=== PATIENT | female | born 1960 | race Caucasian/White ===

== ENCOUNTER 2016-10-05 14:01 | Emergency (ER) | payer MEDICARE ==
[~2016-10-05] VITALS: Ht 167.6 cm; Wt 67.1 kg
[2016-10-05 14:30] VITALS: BP 119/81
[2016-10-05] MEDS ORDERED: HYDROcodone/APAP 5/325MG 1 TAB TABLET PO ONE (14:45)
--- NOTE | 2016-10-05 14:50 | RAD ---
Indication nontraumatic wrist pain. AP oblique and lateral views of the left wrist were obtained. No fracture or acute finding is seen. Significant degenerative changes are not apparent on plain films
[2016-10-05] MEDS ORDERED: ACET325T9 PO (15:02)
[2016-10-05] MEDS ORDERED: NAPR500T PO (15:02)
--- NOTE | 2016-10-05 15:02 | PHYS DOC ---
Past Medical History Past Medical History: Cancer, COPD Additional Past Medical Histor: VULVAR CA Past Surgical History: Other Additional Past Surgical Histo: RADIATION (X3) Smoking: Cigarettes, Less than 1pk/day Alcohol Use: None Drug Use: None Adult General Chief Complaint Chief Complaint: WRIST PAIN [facility] HPI Patient is a 55 year old female who presents with a year-long history of wrist pain acutely exacerbated over the last several days with particular tenderness over the distal ulna. Patient denies any specific trauma or overuse syndrome. She presents with increasing pain over the wrist with movements specifically flexion extension at the wrist lateral rotation. Patient describes the pain as achy and throbbing a 10 of 10 with no change in color to the hand the loss of sensation. She denies over use or sports related injury. She is right-hand dominant. Patient has been used [id number] Motrin and Tylenol with some improvement or symptoms. Given her increased pain she is looking for alternative therapy. Review of Systems Review of Systems Constitutional: Denies fever or chills [] Eyes: Denies change in visual acuity, redness, or eye pain [] HENT: Denies nasal congestion or sore throat [] Respiratory: Denies cough or shortness of breath [] Cardiovascular: No additional information not addressed in HPI [] GI: Denies abdominal pain, nausea, vomiting, bloody stools or diarrhea [] : Denies dysuria or hematuria [] Musculoskeletal: Her only complaint is left wrist pain Integument: Denies rash or skin lesions [] Neurologic: Denies headache, focal weakness or sensory changes [] Endocrine: Denies polyuria or polydipsia [] Current Medications Current Medications Current Medications Medications (Trade) Dose Ordered Sig/[facility] Start Time Stop Time Status Last Admin Dose Admin Acetaminophen/ Hydrocodone Bitart (Lortab 5/325) 2 tab 1X ONCE 10/05/16 14:45 10/05/16 14:46 DC 10/05/16 14:48 2 TAB Allergies Allergies Allergies Coded Allergies Type Severity Reaction Last Updated Verified No Known Drug Allergies 10/05/16 No Physical Exam Physical Exam Constitutional: Well developed, well nourished, no acute distress, non-toxic appearance. [] Cardiovascular:Heart rate regular rhythm, no murmur [] Lungs & Thorax: Bilateral breath sounds clear to auscultation [] Skin: Warm, dry, no erythema, no rash. [] Extremities: no cyanosis, no clubbing, decreased range of motion secondary to pain specifically over lateral flexion at the wrist. Patient has marked tenderness to palpation with minimal soft tissue swelling over the distal ulna only. There is no erythema, no vesicles no changes in skin color. Patient is +2 brisk capillary refill +2 peripheral pulses sensation is intact to light touch and proprioception over each of the digits of the fingers. Patient has +2 peripheral pulses at the anal and ulnar artery. There is no tenderness to percussion over the carpal tunnel or over the ulnar nerve at the medial elbow. no Edema. Neurologic: Alert and oriented X 3, normal motor function, normal sensory function, no focal deficits noted. [] Psychologic: Affect normal, judgement normal, mood normal. [] Current Patient Data Vital Signs Vital Signs Date Time Temp Pulse Resp B/P (MAP) Pulse Ox O2 Delivery O2 Flow Rate FiO2 10/05/16 14:48 16 Room Air 10/05/16 14:30 97.8 92 98 97.8 EKG EKG [] Radiology/Procedures Radiology/Procedures [] [address] [place] [address] IMAGING REPORT Signed PATIENT: AVIVA HUERTAS ACCOUNT: [id number] : 1960 LOCATION: ER AGE: 55 SEX: F EXAM STATUS: REG ER ORD. PHYSICIAN: AARTI GILLIAM MD REASON: wrist pain PROCEDURE: WRIST 3V LEFT Indication nontraumatic wrist pain. AP oblique and lateral views of the left wrist were obtained. No fracture or acute finding is seen. Significant degenerative changes are not apparent on plain films DICTATED and SIGNED BY: GIRMA DEL ROSARIO MD DATE: 10/05/16 1440 CC: AARTI GILLIAM MD; NO PCP ~ Course & Med Decision Making Course & Med Decision Making Pertinent Labs and Imaging studies reviewed. (See chart for details) Vital signs are normal with heart rate of 81, temperature 97.8 blood pressure 119/81 saturation 90% on room air respiratory rate 16 patient's vital signs been reviewed nursing notes been reviewed physical and history of been reviewed. Patient demonstrates with a chronic tendinitis of the distal ulna likely from overuse possibly repetitive trauma. Patient is oh evidence of septic joint, gout gout or migratory throat is secondary to STDs. We will provide NSAIDs and some of her breakthrough pain a cockup wrist splint and follow-up with orthopedics and if this is physical therapy. Impression: Wrist pain likely arthritis possible tendinitis without obvious occult fracture. Disposition: PCP follow-up with orthopedics and physical therapy referrals. [] Dragon Disclaimer Dragon Disclaimer This electronic medical record was generated, in whole or in part, using a voice recognition dictation system. Departure Departure Impression: Primary Impression: Tendinitis Additional Impression: Arthritis, wrist Disposition: HOME, SELF-CARE Condition: IMPROVED Referrals: NO PCP (PCP) Patient Instructions: Extensor Carpi Ulnaris Tendinitis with [facility] Additional Instructions: This follow-up with your primary care physician for referral to exert and physical therapy. Please use the NSAIDs as appropriate to help treat symptoms and rest this wrist was splinted. Please return for any new or increasing symptoms or given any question concerns. Scripts Acetaminophen (TYLENOL) 325 Mg Tablet 1-2 TAB PO QID, #60 TAB 2 Refills Prov: AARTI GILLIAM MD 10/05/16 Naproxen (NAPROSYN) 500 Mg Tablet 1 TAB PO BID, #14 TAB 1 Refill Prov: AARTI GILLIAM MD 10/05/16 Problem Qualifiers AARTI GILLIAM MD Oct 05, 2016 15:02
== END 2016-10-05 15:10 | disposition home or self-care (01) ==
LOC: ER 14:01
DX: M19.032 Primary osteoarthritis, left wrist (principal); M77.9 Enthesopathy, unspecified; J44.9 Chronic obstructive pulmonary disease, unspecified; F17.210 Nicotine dependence, cigarettes, uncomplicated
CPT/HCPCS: 29125; 73110; 99284-25

== ENCOUNTER 2018-03-11 13:26 | Emergency (ER) | payer MEDICARE, OTHER ==
[~2018-03-11] VITALS: Ht 167.6 cm; Wt 67.1 kg
[~2018-03-11 13:26] MED LIST: ACET325T9 PO; NAPR-683 PO
[2018-03-11 13:42] VITALS: BP 132/64
[2018-03-11] MEDS ORDERED: HYDR-3164 PO (14:28)
[2018-03-11] MEDS ORDERED: PENI500T PO (14:28)
--- NOTE | 2018-03-11 14:28 | PHYS DOC ---
Past Medical History Past Medical History: Cancer, COPD Additional Past Medical Histor: VULVAR CA Past Surgical History: Other Additional Past Surgical Histo: RADIATION (X3) Alcohol Use: None Drug Use: None Adult General Chief Complaint Chief Complaint: DENTAL PROBLEM HPI HPI Patient is a 57 year old female who presents with right-sided facial droop swelling and lower right dental pain with a broken tooth. She rates her pain a 10 out of 10 at radiates into her right jaw and up into her head. She states she 's been trying ibuprofen but the pain is too great. Patient states she has no dentist. No known drug allergies and has diabetes. Patient states that upon which she cannot eat. Review of Systems Review of Systems Constitutional: Denies fever or chills [] Eyes: Denies change in visual acuity, redness, or eye pain [] HENT: Dental pain and right facial swelling. Denies nasal congestion or sore throat [] GI: Denies abdominal pain, nausea, vomiting, bloody stools or diarrhea [] All other systems were reviewed and found to be within normal limits, except as documented in this note. Current Medications Current Medications Current Medications Medications (Trade) Dose Ordered Sig/[facility] Start Time Stop Time Status Last Admin Dose Admin Ibuprofen (Motrin) 800 mg 1X ONCE 03/11/18 15:00 03/11/18 15:00 DC Allergies Allergies Allergies Coded Allergies Type Severity Reaction Last Updated Verified No Known Drug Allergies 10/05/16 No Physical Exam Physical Exam Constitutional: Well developed, well nourished, no acute distress, non-toxic appearance. [] HENT: Normocephalic, atraumatic, bilateral external ears normal, oropharynx moist, no oral exudates, nose normal. Right lower broken tooth and reddened gum line. [] Eyes: PERRLA, EOMI, conjunctiva normal, no discharge. [] Neck: Normal range of motion, no tenderness, supple, no stridor. [] Cardiovascular:Heart rate regular rhythm, no murmur [] Lungs & Thorax: Bilateral breath sounds clear to auscultation [] Abdomen: Bowel sounds normal, soft, no tenderness, no masses, no pulsatile masses. [] Skin: Warm, dry, no erythema, no rash. [] Back: No tenderness, no CVA tenderness. [] Extremities: No tenderness, no cyanosis, no clubbing, ROM intact, no edema. [] Neurologic: Alert and oriented X 3, normal motor function, normal sensory function, no focal deficits noted. [] Psychologic: Affect normal, judgement normal, mood normal. [] Current Patient Data Vital Signs Vital Signs Date Time Temp Pulse Resp B/P (MAP) Pulse Ox O2 Delivery O2 Flow Rate FiO2 03/11/18 13:42 98.6 98 20 132/64 (86) 97 Room Air 98.6 EKG EKG [] Radiology/Procedures Radiology/Procedures [] Course & Med Decision Making Course & Med Decision Making Patient is a 57 year old female who presents with right-sided facial droop swelling and lower right dental pain with a broken tooth. She rates her pain a 10 out of 10 at radiates into her right jaw and up into her head. She states she 's been trying ibuprofen but the pain is too great. Patient states she has no dentist. No known drug allergies and has diabetes. Patient states that upon which she cannot eat. And oriented. Skin pink warm and dry. Afebrile. Patient has a broken tooth on her right lower jaw. There is slight swelling of the gum line. She has no swelling is seen or abscess is seen inside the mouth. Patient is given ibuprofen, penicillin and [place] and a list of dentist and told to follow up as soon as possible. [] Dragon Disclaimer Dragon Disclaimer This electronic medical record was generated, in whole or in part, using a voice recognition dictation system. Departure Departure Impression: Primary Impression: Dental abscess Disposition: 01 HOME, SELF-CARE Condition: STABLE Referrals: NO PCP (PCP) Patient Instructions: Dental Abscess Additional Instructions: Medications as prescribed. Please see a dentist as soon as possible. Scripts Penicillin V Potassium (PENICILLIN V POTASSIUM) 500 Mg Tablet 500 MG PO QID for 10 Days, #40 TAB 0 Refills Prov: WANDA PEREZ DIGITAL INTERN 03/11/18 Hydrocodone/Apap 5-325 (NORCO 5-325 TABLET) 1 Each Tablet 1 TAB PO PRN Q6HRS PRN for PAIN, #15 TAB 0 Refills Prov: WANDA PEREZ DIGITAL INTERN 03/11/18 WANDA PEREZ DIGITAL INTERN Mar 11, 2018 14:28
[2018-03-11] MEDS ORDERED: IBUPROFEN 400 MG TABLET. PO ONE (15:00)
== END 2018-03-11 14:36 | disposition home or self-care (01) ==
LOC: ER 13:26
DX: K04.7 Periapical abscess without sinus (principal); R29.810 Facial weakness; R51 Headache; J44.9 Chronic obstructive pulmonary disease, unspecified; E11.9 Type 2 diabetes mellitus without complications
CPT/HCPCS: 99283

== ENCOUNTER 2018-04-10 17:15 | Emergency (ER) | payer MEDICARE, OTHER ==
[~2018-04-10] VITALS: Ht 167.6 cm; Wt 65.8 kg
[~2018-04-10 17:15] MED LIST changes: +HYDR-3164 PO; +PENI500T PO
[2018-04-10] MEDS ORDERED: IV NORMAL SALINE 1000ML BAG 1,000 ML IV ONE (18:00)
[2018-04-10] MEDS ORDERED: ONDANSETRON PF 4 MG/2 ML VIAL. IV ONE (18:00)
[2018-04-10] MEDS ORDERED: fentaNYL PF VIAL 100 MCG/2 ML VIAL IV ONE (18:00)
[2018-04-10] MEDS ORDERED: IOHEXOL 300 MG/ML 100ML VIAL. IV ONE (18:15)
[2018-04-10 18:21] LABS: BASO % 1 % (0-3); EOS # 0.1 x10^3/uL (0.0-0.7); EOS % 1 % (0-3); HEMATOCRIT 42.7 % (36.0-47.0); HEMOGLOBIN 14.4 g/dL (12.0-15.5); LYMPH # 2.9 x10^3/uL (1.0-4.8); LYMPH % 36 % (24-48); MEAN CORPUSCULAR HEMOGLOBIN 28 pg (25-35); MEAN CORPUSCULAR HGB CONC 34 g/dL (31-37); MEAN CORPUSCULAR VOLUME 84 fL (79-100); MONO # 0.7 x10^3/uL (0.0-1.1); MONO % 8 % (0-9); NEUT # 4.5 x10^3uL (1.8-7.7); NEUT % 55 % (31-73); PLATELET COUNT 275 x10^3/uL (140-400); RED BLOOD COUNT 5.11 x10^6/uL (3.50-5.40); WHITE BLOOD COUNT 8.1 x10^3/uL (4.0-11.0)
[2018-04-10 18:26] LABS: CALCIUM 8.7 mg/dL (8.5-10.1); CREATININE 0.9 mg/dL (0.6-1.0); GFR 64.8
[2018-04-10 18:31] LABS: POTASSIUM 2.8 mmol/L (3.5-5.1)
--- NOTE | 2018-04-10 18:33 | PHYS DOC ---
Past Medical History Past Medical History: Cancer, COPD Additional Past Medical Histor: VULVAR CA Past Surgical History: Other Additional Past Surgical Histo: RADIATION (X3) Alcohol Use: None Drug Use: None Adult General Chief Complaint Chief Complaint: DENTAL PROBLEM HPI HPI Patient is a 57 year old female who presents with exactly 1 month ago came in for dental pain and a dental abscess and was given antibiotics and pain medication and she had the tooth pulled. Patient has 1 right lower tooth left and is now causing her pain with facial swelling and pink red colored area that extends slightly into the right side of her chin. Patient rates the pain does not tend has not taken any pain medication since last night. She denies any nausea or vomiting or fever. Review of Systems Review of Systems Constitutional: Denies fever or chills [] Eyes: Denies change in visual acuity, redness, or eye pain [] HENT: Red sided facial and right lower gum line swollen. Denies nasal congestion or sore throat [] Respiratory: Denies cough or shortness of breath [] Cardiovascular: No additional information not addressed in HPI [] GI: Denies abdominal pain, nausea, vomiting, bloody stools or diarrhea [] : Denies dysuria or hematuria [] Musculoskeletal: Denies back pain or joint pain [] Integument: Denies rash or skin lesions [] Neurologic: Denies headache, focal weakness or sensory changes [] All other systems were reviewed and found to be within normal limits, except as documented in this note. Current Medications Current Medications Current Medications Medications (Trade) Dose Ordered Sig/[facility] Start Time Stop Time Status Last Admin Dose Admin Acetaminophen/ Hydrocodone Bitart (Lortab 5/325) 1 tab 1X ONCE 04/10/18 20:15 04/10/18 20:16 DC 04/10/18 20:44 1 TAB Clindamycin Phosphate 50 ml @ 100 mls/hr 1X ONCE 04/10/18 20:15 04/10/18 20:44 DC 04/10/18 20:44 100 MLS/HR Fentanyl Citrate (Fentanyl 2ml Vial) 50 mcg 1X ONCE 04/10/18 18:00 04/10/18 18:01 DC 04/10/18 18:17 50 MCG Iohexol (Omnipaque 300 Mg/ml) 70 ml 1X ONCE 04/10/18 18:15 04/10/18 18:16 DC 04/10/18 19:18 70 ML Ondansetron HCl (Zofran) 4 mg 1X ONCE 04/10/18 18:00 04/10/18 18:01 DC 04/10/18 18:17 4 MG Potassium Chloride (Klor-Con) 40 meq 1X ONCE 04/10/18 18:45 04/10/18 18:46 DC 04/10/18 19:46 40 MEQ Sodium Chloride 1,000 ml @ 1,000 mls/hr 1X ONCE 04/10/18 18:00 04/10/18 18:59 DC 04/10/18 18:16 1,000 MLS/HR Allergies Allergies Allergies Coded Allergies Type Severity Reaction Last Updated Verified No Known Drug Allergies 10/05/16 No Physical Exam Physical Exam Constitutional: Well developed, well nourished, no acute distress, non-toxic appearance. [] HENT: Red sided facial and right lower gum line swollen. With facial tenderness and inner oral mucosa tenderness. Normocephalic, atraumatic, bilateral external ears normal, oropharynx moist, no oral exudates, nose normal. [] Eyes: PERRLA, EOMI, conjunctiva normal, no discharge. [] Neck: Normal range of motion, no tenderness, supple, no stridor. [] Cardiovascular:Heart rate regular rhythm, no murmur [] Lungs & Thorax: Bilateral breath sounds clear to auscultation [] Abdomen: Bowel sounds normal, soft, no tenderness, no masses, no pulsatile masses. [] Skin: Warm, dry, no erythema, no rash. [] Back: No tenderness, no CVA tenderness. [] Extremities: No tenderness, no cyanosis, no clubbing, ROM intact, no edema. [] Neurologic: Alert and oriented X 3, normal motor function, normal sensory function, no focal deficits noted. [] Psychologic: Affect normal, judgement normal, mood normal. [] Current Patient Data Vital Signs Vital Signs Date Time Temp Pulse Resp B/P (MAP) Pulse Ox O2 Delivery O2 Flow Rate FiO2 04/10/18 20:44 16 98 Room Air 04/10/18 17:15 98.0 89 150/72 (98) 98.0 Lab Values Laboratory Tests Test 04/10/18 18:00 White Blood Count 8.1 x10^3/uL (4.0-11.0) Red Blood Count 5.11 x10^6/uL (3.50-5.40) Hemoglobin 14.4 g/dL (12.0-15.5) Hematocrit 42.7 % (36.0-47.0) Mean Corpuscular Volume 84 fL (79-100) Mean Corpuscular Hemoglobin 28 pg (25-35) Mean Corpuscular Hemoglobin Concent 34 g/dL (31-37) Red Cell Distribution Width 16.0 % (11.5-14.5) H Platelet Count 275 x10^3/uL (140-400) Neutrophils (%) (Auto) 55 % (31-73) Lymphocytes (%) (Auto) 36 % (24-48) Monocytes (%) (Auto) 8 % (0-9) Eosinophils (%) (Auto) 1 % (0-3) Basophils (%) (Auto) 1 % (0-3) Neutrophils # (Auto) 4.5 x10^3uL (1.8-7.7) Lymphocytes # (Auto) 2.9 x10^3/uL (1.0-4.8) Monocytes # (Auto) 0.7 x10^3/uL (0.0-1.1) Eosinophils # (Auto) 0.1 x10^3/uL (0.0-0.7) Basophils # (Auto) 0.0 x10^3/uL (0.0-0.2) Sodium Level 140 mmol/L (136-145) Potassium Level 2.8 mmol/L (3.5-5.1) *L Chloride Level 102 mmol/L (98-107) Carbon Dioxide Level 31 mmol/L (21-32) Anion Gap 7 (6-14) Blood Urea Nitrogen 9 mg/dL (7-20) Creatinine 0.9 mg/dL (0.6-1.0) Estimated GFR (Cockcroft-Gault) 64.8 Glucose Level 183 mg/dL (70-99) H Calcium Level 8.7 mg/dL (8.5-10.1) Laboratory Tests 04/10/18 18:00 Laboratory Tests 04/10/18 18:00 EKG EKG Sinus rhythm no STEMI Interpretation Time: [address] Guillermo Radiology/Procedures Radiology/Procedures CT MAXILLOFACIAL Impressions: [facility] [address] [place] [address] IMAGING REPORT Signed PATIENT: AVIVA HUERTAS ACCOUNT: [id number] : 1960 LOCATION: ER AGE: 57 SEX: F EXAM STATUS: REG ER ORD. PHYSICIAN: WANDA PEREZ APRN REASON: RIGHT SIDED LOWER TOOTH ABSCESS WITH FACIAL SWELLING PROCEDURE: CT MAXILLOFACIAL W/CONTRAST CT scan of the facial bones without contrast 04/10/2018 CLINICAL HISTORY: Facial swelling for 2 weeks. Abscessed tooth. TECHNIQUE: After the intravenous administration of 70 cc of Omnipaque 300, contiguous, 0.625 mm axial sections were obtained through the facial bones. 3 mm reconstructed sagittal, axial and coronal images were obtained. One or more of the following individualized dose reduction techniques were utilized for this study: 1. Automated exposure control. 2. Adjustment of the mA and/or kV according to patient size. 3. Use of iterative reconstruction technique. FINDINGS:The patient is essentially edentulous. A single canine tooth is seen within the right mandible. A defect is seen within the alveolar ridge of the right anterior body of the mandible posterior to the right remaining canine tooth which may represent a recent tooth extraction site. There is loss of alveolar ridge of the maxilla and mandible consistent with chronic periodontal disease. Soft tissue swelling and increased density is seen within the right submental region inferior to the right anterior aspect of the mandible. A irregular low-attenuation structure is seen in this region which measures 2.7 cm in greatest diameter. This is consistent with an abscess. It is approximately 4 mm deep to the skin surface. Enlarged lymph nodes are seen in this area, right greater than left which measure 1 cm to 1.6 cm in size consistent with lymphadenitis. No additional abnormal fluid collection is seen. The parotid and submandibular glands are within normal limits. IMPRESSION: 2.7 cm irregular fluid collection is seen in the right submental region immediately deep to the right aspect of the anterior mandible consistent with an abscess. Electronically signed by: Karlos Perez MD (04/10/2018 7:52 PM) [facility] DICTATED and SIGNED BY: KARLOS PEREZ MD DATE: 04/10/181942 Course & Med Decision Making Course & Med Decision Making Patient is a 57 year old female who presents with exactly 1 month ago came in for dental pain and a dental abscess and was given antibiotics and pain medication and she had the tooth pulled. Patient has 1 right lower tooth left and is now causing her pain with facial swelling and pink red colored area that extends slightly into the right side of her chin. Patient rates the pain does not tend has not taken any pain medication since last night. She denies any nausea or vomiting or fever. Alert and oriented. Afebrile. Speaks in full clear sentences. When looking inside her mouth at gum line is slightly reddened and swollen, more so the right lower face swollen 3+. There is tenderness when pushing down on the gumline in the inner oral dose. Patient is given normal saline bolus, fentanyl, Zofran, a CT maxillofacial is ordered. Patients potassium is 2.8 and I have given her 40 meq of potassium in ED and patietn to increase intake of potassium rich foods and or taking a multivitamin and follow up with primary care physician for follow up. CT shows IMPRESSION: 2.7 cm irregular fluid collection is seen in the right submental region immediately deep to the right aspect of the anterior mandible consistent with an abscess. Patient is given IV clindamycin dose in the ED and will be sent home with clindamycin and pain medication. She is to return to the ED if she begins running a fever and the abscess is getting worse. Dragon Disclaimer Dragon Disclaimer This electronic medical record was generated, in whole or in part, using a voice recognition dictation system. Departure Departure Impression: Primary Impression: Dental abscess Disposition: HOME, SELF-CARE Condition: STABLE Referrals: NO PCP (PCP) Patient Instructions: Dental Abscess Additional Instructions: Return to the ED if he began running a fever or swelling spreads. Take medications as prescribed. Call your dentist as soon as possible. Scripts Ibuprofen (IBUPROFEN) 600 Mg Tablet 600 MG PO PRN Q6HRS PRN for INFLAMMATION, #20 TAB Prov: WANDA PEREZ APRN 04/10/18 Hydrocodone/Apap 5-325 (NORCO 5-325 TABLET) 1 Each Tablet 1 TAB PO PRN Q6HRS PRN for PAIN, #20 TAB 0 Refills Prov: WANDA PEREZ APR04/10/18 Clindamycin Hcl (CLINDAMYCIN HCL) 300 Mg Capsule 300 MG PO QID for 10 Days, #40 CAP Prov: WANDA PEREZ APRN 04/10/18 WANDA PEREZ APRN Apr 10, 2018 18:33
[2018-04-10] MEDS ORDERED: POTASSIUM CHLORIDE 20 MEQ TABLET.ER. PO ONE (18:45)
--- NOTE | 2018-04-10 19:56 | RAD ---
CT scan of the facial bones without contrast 04/10/2018 CLINICAL HISTORY: Facial swelling for 2 weeks. Abscessed tooth. TECHNIQUE: After the intravenous administration of 70 cc of Omnipaque 300, contiguous, 0.625 mm axial sections were obtained through the facial bones. 3 mm reconstructed sagittal, axial and coronal images were obtained. One or more of the following individualized dose reduction techniques were utilized for this study: 1. Automated exposure control. 2. Adjustment of the mA and/or kV according to patient size. 3. Use of iterative reconstruction technique. FINDINGS:The patient is essentially edentulous. A single canine tooth is seen within the right mandible. A defect is seen within the alveolar ridge of the right anterior body of the mandible posterior to the right remaining canine tooth which may represent a recent tooth extraction site. There is loss of alveolar ridge of the maxilla and mandible consistent with chronic periodontal disease. Soft tissue swelling and increased density is seen within the right submental region inferior to the right anterior aspect of the mandible. A irregular low-attenuation structure is seen in this region which measures 2.7 cm in greatest diameter. This is consistent with an abscess. It is approximately 4 mm deep to the skin surface. Enlarged lymph nodes are seen in this area, right greater than left which measure 1 cm to 1.6 cm in size consistent with lymphadenitis. No additional abnormal fluid collection is seen. The parotid and submandibular glands are within normal limits. IMPRESSION: 2.7 cm irregular fluid collection is seen in the right submental region immediately deep to the right aspect of the anterior mandible consistent with an abscess. Electronically signed by: Karlos Perez MD (04/10/2018 7:52 PM) [facility]
[2018-04-10] MEDS ORDERED: HYDROcodone/APAP 5/325MG 1 TAB TABLET PO ONE (20:15)
[2018-04-10] MEDS ORDERED: CLINDAMYCIN 900MG PREMIX 50 ML IV ONE (20:15)
[2018-04-10] MEDS ORDERED: IBUP-1007 PO (20:20)
[2018-04-10] MEDS ORDERED: CLIN300C8 PO (20:20)
[2018-04-10] MEDS ORDERED: HYDR-3164 PO (20:20)
[2018-04-10 21:15] VITALS: BP 87/59
--- NOTE | 2018-04-11 06:35 | EKG ---
[facility] [address] [place] [address] Test Date: 2018-04-10 Test Time: 20:50:48 Pat Name: AVIVA HUERTAS Department: Room: Gender: F Application Packager: : 1960 Requested By: WANDA PEREZ Order Number: [id number] Reading MD: Measurements Intervals [place] Rate: 86 P: 76 TN: 172 QRS: 54 QRSD: 84 T: 73 QT: 402 QTc: 484 Interpretive Statements SINUS RHYTHM LOW LIMB LEAD VOLTAGE PROLONGED QT NO SPECIFIC ECG ABNORMALITIES RI6.01 No previous ECG available for comparison
== END 2018-04-10 21:49 | disposition home or self-care (01) ==
LOC: ER 17:15
DX: K04.7 Periapical abscess without sinus (principal); J44.9 Chronic obstructive pulmonary disease, unspecified
CPT/HCPCS: 36415; 70487; 80048; 85025; 93005; 96365; 96375; 99284; J2405; J3010; J3490; J7030; Q9967

== ENCOUNTER 2018-04-15 00:22 | Emergency (ER) | payer MEDICARE, OTHER ==
[~2018-04-15] VITALS: Ht 165.1 cm; Wt 65.8 kg
[~2018-04-15 00:22] MED LIST changes: +CLIN300C8 PO; +IBUP-1007 PO
[2018-04-15] MEDS ORDERED: IV NORMAL SALINE 1000ML BAG 1,000 ML IV ONE (01:00)
[2018-04-15] MEDS ORDERED: IPRATRPIUM/ALBUTEROL 0.5/2.5MG 3 ML NEBU. NEB ONE (01:00)
[2018-04-15 01:12] LABS: BASO # 0.1 x10^3/uL (0.0-0.2); BASO % 1 % (0-3); EOS % 0 % (0-3); HEMOGLOBIN 14.4 g/dL (12.0-15.5); LYMPH # 2.2 x10^3/uL (1.0-4.8); LYMPH % 20 % (24-48); MEAN CORPUSCULAR HEMOGLOBIN 29 pg (25-35); MEAN CORPUSCULAR HGB CONC 35 g/dL (31-37); MEAN CORPUSCULAR VOLUME 82 fL (79-100); MONO # 0.8 x10^3/uL (0.0-1.1); MONO % 7 % (0-9); NEUT # 7.6 x10^3uL (1.8-7.7); NEUT % 72 % (31-73); PLATELET COUNT 313 x10^3/uL (140-400); RED BLOOD COUNT 4.99 x10^6/uL (3.50-5.40); RED CELL DISTRIBUTION WIDTH 15.8 % (11.5-14.5); WHITE BLOOD COUNT 10.6 x10^3/uL (4.0-11.0)
[2018-04-15 01:21] LABS: CREATININE 1.1 mg/dL (0.6-1.0); GFR 51.4; POTASSIUM 3.1 mmol/L (3.5-5.1)
--- NOTE | 2018-04-15 01:26 | PHYS DOC ---
Past Medical History Past Medical History: Cancer, COPD Additional Past Medical Histor: VULVAR CA Past Surgical History: Other Additional Past Surgical Histo: RADIATION (X3) Smoking: Cigarettes Alcohol Use: None Drug Use: None Adult General Chief Complaint Chief Complaint: DENTAL PROBLEM HPI HPI Patient is a 57-year-old female who presents to the emergency department for evaluation. She was seen in the emergency department about 5 days ago, for right lower dental pain and some swelling. She was prescribed clindamycin, which she states she has been taking. She did have imaging and lab testing done at that time which has been reviewed. She states that she has been taking the medication but she has had worsening pain and swelling on the right side of her chin. She now has an excised fluctuant, firm mass in the right submental region. She has not had any fevers or chills or difficulty breathing or voice changes. There are no alleviating or exacerbating factors to the patient's symptoms, except as noted. Review of Systems Review of Systems Constitutional: Denies fever or chills [] Eyes: Denies change in visual acuity, redness, or eye pain [] HENT: Denies nasal congestion or sore throat [] Respiratory: Denies cough or shortness of breath [] Cardiovascular: The patient denies any shortness of breath, chest pain, palpitations, or orthopnea [] GI: Denies abdominal pain, nausea, vomiting, bloody stools or diarrhea [] : Denies dysuria or hematuria [] Musculoskeletal: Denies back pain or joint pain [] Integument: Denies rash or skin lesions [] Neurologic: Denies headache, focal weakness or sensory changes [] Endocrine: Denies polyuria or polydipsia [] All other systems were reviewed and found to be within normal limits, except as documented in this note. Current Medications Current Medications Current Medications Medications (Trade) Dose Ordered Sig/Eloy Start Time Stop Time Status Last Admin Dose Admin Acetaminophen (Tylenol) 1,000 mg 1X ONCE 04/15/18 03:00 04/15/18 03:01 DC Albuterol/ Ipratropium (Duoneb) 3 ml 1X ONCE 04/15/18 01:00 04/15/18 01:04 DC 04/15/18 01:52 3 ML Info (CONTRAST GIVEN -- Rx MONITORING) 1 each PRN DAILY PRN 04/15/18 02:15 04/17/18 02:14 Iohexol (Omnipaque 300 Mg/ml) 60 ml 1X ONCE 04/15/18 02:00 04/15/18 02:04 DC 04/15/18 02:13 60 ML Sodium Chloride 1,000 ml @ 1,000 mls/hr 1X ONCE 04/15/18 01:00 04/15/18 01:59 DC 04/15/18 01:30 1,000 MLS/HR Allergies Allergies Allergies Coded Allergies Type Severity Reaction Last Updated Verified No Known Drug Allergies 10/05/16 No Physical Exam Physical Exam PHYSICAL EXAM: CONSTITUTIONAL: Well developed, well nourished HEAD: normocephalic, atraumatic EENT: PERRL, EOMI. Conjunctivae normal color, sclerae non-icteric; moist mucous membranes. The patient is edentulous, with the exception of one right lower canine tooth, which is slightly loose. There is no gingival edema or swelling. There is an egg sized firm mass in the right submental/submandibular region, which is tender to palpation. There is trace erythema to the skin overlying this , but the appearance is not consistent with a cutaneous abscess. There is mild firmness at the floor of the mouth. The airway is patent otherwise. NECK: Supple, non-tender; no meningismus. LUNGS: Mild scattered wheezes, breathing even and unlabored. Normal air movement. HEART: Regular rate and rhythm, no murmur CHEST: No deformity; non-tender ABDOMEN: The abdomen is soft, and non-tender, no masses or bruits. EXTREM: Normal ROM; no deformity, no calf tenderness. Normal pulses palpable in all extremities. There is no pedal edema. SKIN: No rash; no diaphoresis NEURO: Alert; normal speech and cognition; CN's grossly intact; strength grossly intact without focal deficit. BACK: No CVA TTP. Current Patient Data Vital Signs Vital Signs Date Time Temp Pulse Resp B/P (MAP) Pulse Ox O2 Delivery O2 Flow Rate FiO2 04/15/18 01:51 92 Room Air 04/15/18 01:32 100 20 104/58 (73) 04/15/18 00:50 102.4 102.4 Lab Values Laboratory Tests Test 04/15/18 01:04 White Blood Count 10.6 x10^3/uL (4.0-11.0) Red Blood Count 4.99 x10^6/uL (3.50-5.40) Hemoglobin 14.4 g/dL (12.0-15.5) Hematocrit 41.0 % (36.0-47.0) Mean Corpuscular Volume 82 fL (79-100) Mean Corpuscular Hemoglobin 29 pg (25-35) Mean Corpuscular Hemoglobin Concent 35 g/dL (31-37) Red Cell Distribution Width 15.8 % (11.5-14.5) H Platelet Count 313 x10^3/uL (140-400) Neutrophils (%) (Auto) 72 % (31-73) Lymphocytes (%) (Auto) 20 % (24-48) L Monocytes (%) (Auto) 7 % (0-9) Eosinophils (%) (Auto) 0 % (0-3) Basophils (%) (Auto) 1 % (0-3) Neutrophils # (Auto) 7.6 x10^3uL (1.8-7.7) Lymphocytes # (Auto) 2.2 x10^3/uL (1.0-4.8) Monocytes # (Auto) 0.8 x10^3/uL (0.0-1.1) Eosinophils # (Auto) 0.0 x10^3/uL (0.0-0.7) Basophils # (Auto) 0.1 x10^3/uL (0.0-0.2) Sodium Level 135 mmol/L (136-145) L Potassium Level 3.1 mmol/L (3.5-5.1) L Chloride Level 97 mmol/L (98-107) L Carbon Dioxide Level 26 mmol/L (21-32) Anion Gap 12 (6-14) Blood Urea Nitrogen 12 mg/dL (7-20) Creatinine 1.1 mg/dL (0.6-1.0) H Estimated GFR (Cockcroft-Gault) 51.4 Glucose Level 163 mg/dL (70-99) H Lactic Acid Level 1.0 mmol/L (0.4-2.0) Calcium Level 9.0 mg/dL (8.5-10.1) Laboratory Tests 04/15/18 01:04 Laboratory Tests 04/15/18 01:04 EKG EKG [] Radiology/Procedures Radiology/Procedures [PROCEDURE: CT MAXILLOFACIAL W/CONTRAST CT maxillofacial with contrast 04/15/2018. Reason for exam: Worsening right submandibular abscess. CT images were performed through the face using an infusion of 60 mL Omnipaque 300. Sagittal and coronal reconstructions were performed. Exposure: One or more of the following individualized dose reduction techniques were utilized for this examination: 1. Automated exposure control 2. Adjustment of the mA and/or kV according to patient size 3. Use of iterative reconstruction technique. Comparison is made with the exam done 04/10/2018. FINDINGS: A right submandibular fluid collection is again seen, consistent with an abscess. This has increased in size. Medial lateral dimension including the wall of the abnormality is now about 2.5 cm and AP dimension about 3.0 cm. This compares with about 1.9 x 2.6 cm by my measurement previously using the same method. There is surrounding edema consistent with cellulitis. No other fluid collection is seen. Reactive lymph nodes are again demonstrated. No new findings are seen involving the mandible. IMPRESSION: Slight enlargement of the right submandibular abscess.] Course & Med Decision Making Course & Med Decision Making Pertinent Labs and Imaging studies reviewed. (See chart for details) [3:40 AM:] The patient's condition remained stable. She has failed outpatient treatment and does warrant further evaluation and treatment facility with ENT or OMF capabilities. I spoke with Dr. Herrera, ENT at , who recommended [facility] where OMF is available. I spoke with Dr. Mcnamara in the ER at [facility], who accepted the patient. The patient is agreeable to transfer. Dragon Disclaimer Dragon Disclaimer This electronic medical record was generated, in whole or in part, using a voice recognition dictation system. Departure Departure Impression: Primary Impression: Abscess of submental region Additional Impressions: COPD (chronic obstructive pulmonary disease) Hypokalemia Disposition: 02 TRANSFER T-REPLACED BY [facility] Condition: STABLE Referrals: NO PCP (PCP) Problem Qualifiers SILVERIO HUGIGNS MD Apr 15, 2018 01:26
[2018-04-15 01:32] VITALS: BP 104/58
[2018-04-15] MEDS ORDERED: IOHEXOL 300 MG/ML 100ML VIAL. IV ONE (02:00)
[2018-04-15] MEDS ORDERED: CONTRAST GIVEN. MC PRN (02:15)
--- NOTE | 2018-04-15 02:39 | RAD ---
CT maxillofacial with contrast 04/15/2018. Reason for exam: Worsening right submandibular abscess. CT images were performed through the face using an infusion of 60 mL Omnipaque 300. Sagittal and coronal reconstructions were performed. Exposure: One or more of the following individualized dose reduction techniques were utilized for this examination: 1. Automated exposure control 2. Adjustment of the mA and/or kV according to patient size 3. Use of iterative reconstruction technique. Comparison is made with the exam done 04/10/2018. FINDINGS: A right submandibular fluid collection is again seen, consistent with an abscess. This has increased in size. Medial lateral dimension including the wall of the abnormality is now about 2.5 cm and AP dimension about 3.0 cm. This compares with about 1.9 x 2.6 cm by my measurement previously using the same method. There is surrounding edema consistent with cellulitis. No other fluid collection is seen. Reactive lymph nodes are again demonstrated. No new findings are seen involving the mandible. IMPRESSION: Slight enlargement of the right submandibular abscess. Electronically signed by: Hayes Ga Jr., MD (04/15/2018 2:35 AM) [facility]
[2018-04-15] MEDS ORDERED: ACETAMINOPHEN 500 MG TABLET PO ONE (03:00)
[2018-04-15] MEDS ORDERED: AMPICILLIN/SULBACTAM 3 GM in IV NORMAL SALINE 100ML 100 ML IV ONE (03:45)
[2018-04-15] MEDS ORDERED: POTASSIUM CHLORIDE 20 MEQ TABLET.ER. PO ONE (03:45)
== END 2018-04-15 04:25 | disposition short-term general hospital (02) ==
LOC: ER 00:22
DX: L02.01 Cutaneous abscess of face (principal); J44.9 Chronic obstructive pulmonary disease, unspecified; E87.6 Hypokalemia; F17.210 Nicotine dependence, cigarettes, uncomplicated
CPT/HCPCS: 36415; 70487; 80048; 83605; 85025; 94640; 96365; 99285; J0295; J7030; J7620; Q9967

== ENCOUNTER 2018-08-24 14:12 | Emergency (ER) | payer MEDICAID, MEDICARE, OTHER ==
[~2018-08-24] VITALS: Ht 167.6 cm; Wt 71.2 kg
[2018-08-24] MEDS ORDERED: ONDANSETRON PF 4 MG/2 ML VIAL. IV ONE (15:45)
[2018-08-24] MEDS ORDERED: MORPHINE SULFATE 10 MG/ML VIAL. IV ONE (15:45)
--- NOTE | 2018-08-24 15:48 | PHYS DOC ---
Past Medical History Past Medical History: Cancer, COPD Additional Past Medical Histor: VULVAR CA Past Surgical History: Other Additional Past Surgical Histo: RADIATION (X3) Alcohol Use: None Drug Use: None Adult General Chief Complaint Chief Complaint: DENTAL PROBLEM HPI HPI Patient is a 57 year old female who presents complaining of swelling on her lower jaw that she noted 4 days ago. Patient states she had a dental abscess in April and had to be intubated. She states she has no teeth either. Review of Systems Review of Systems Constitutional: Denies fever or chills [] Eyes: Denies change in visual acuity, redness, or eye pain [] HENT: Reports dental abscess. Denies nasal congestion or sore throat [] Respiratory: Denies cough or shortness of breath [] Cardiovascular: No additional information not addressed in HPI [] GI: Denies abdominal pain, nausea, vomiting, bloody stools or diarrhea [] : Denies dysuria or hematuria [] Musculoskeletal: Denies back pain or joint pain [] Integument: Denies rash or skin lesions [] Neurologic: Denies headache, focal weakness or sensory changes [] All other systems were reviewed and found to be within normal limits, except as documented in this note. Current Medications Current Medications Current Medications Medications (Trade) Dose Ordered Sig/Eloy Start Time Stop Time Status Last Admin Dose Admin Info (CONTRAST GIVEN -- Rx MONITORING) 1 each PRN DAILY PRN 08/24/18 16:15 08/26/18 16:14 Iohexol (Omnipaque 300 Mg/ml) 70 ml 1X ONCE 08/24/18 16:15 08/24/18 16:16 DC 08/24/18 16:17 70 ML Morphine Sulfate (Morphine Sulfate) 5 mg 1X ONCE 08/24/18 15:45 08/24/18 15:46 DC 08/24/18 15:49 5 MG Ondansetron HCl (Zofran) 4 mg 1X ONCE 08/24/18 15:45 08/24/18 15:46 DC 08/24/18 15:48 4 MG Allergies Allergies Allergies Coded Allergies Type Severity Reaction Last Updated Verified No Known Drug Allergies 10/05/16 No Physical Exam Physical Exam Constitutional: Well developed, well nourished, no acute distress, non-toxic appearance. [] HENT: Normocephalic, atraumatic, bilateral external ears normal, oropharynx moist, no oral exudates, nose normal. [] Edentulous. No gum redness or erythema noted. There is an indurated area approximately 2 x 2 centimeters with erythema, warmth and TTT under the right mandible. No drainage. Eyes: PERRLA, EOMI, conjunctiva normal, no discharge. [] Neck: Normal range of motion, no tenderness, supple, no stridor. [] Cardiovascular:Heart rate regular rhythm, no murmur [] Lungs & Thorax: Bilateral breath sounds clear to auscultation [] Abdomen: Bowel sounds normal, soft, no tenderness, no masses, no pulsatile masses. [] Skin: Warm, dry, no erythema, no rash. [] Back: No tenderness, no CVA tenderness. [] Extremities: No tenderness, no cyanosis, no clubbing, ROM intact, no edema. [] Neurologic: Alert and oriented X 3, normal motor function, normal sensory function, no focal deficits noted. [] Psychologic: Affect normal, judgement normal, mood normal. [] Current Patient Data Vital Signs Vital Signs Date Time Temp Pulse Resp B/P (MAP) Pulse Ox O2 Delivery O2 Flow Rate FiO2 08/24/18 14:36 98.1 90 16 202/74 (116) 96 Room Air 98.1 Lab Values Laboratory Tests Test 08/24/18 15:30 White Blood Count 6.6 x10^3/uL (4.0-11.0) Red Blood Count 5.59 x10^6/uL (3.50-5.40) H Hemoglobin 15.4 g/dL (12.0-15.5) Hematocrit 46.2 % (36.0-47.0) Mean Corpuscular Volume 83 fL (79-100) Mean Corpuscular Hemoglobin 28 pg (25-35) Mean Corpuscular Hemoglobin Concent 33 g/dL (31-37) Red Cell Distribution Width 15.4 % (11.5-14.5) H Platelet Count 341 x10^3/uL (140-400) Neutrophils (%) (Auto) 45 % (31-73) Lymphocytes (%) (Auto) 46 % (24-48) Monocytes (%) (Auto) 7 % (0-9) Eosinophils (%) (Auto) 1 % (0-3) Basophils (%) (Auto) 1 % (0-3) Neutrophils # (Auto) 3.0 x10^3uL (1.8-7.7) Lymphocytes # (Auto) 3.0 x10^3/uL (1.0-4.8) Monocytes # (Auto) 0.5 x10^3/uL (0.0-1.1) Eosinophils # (Auto) 0.1 x10^3/uL (0.0-0.7) Basophils # (Auto) 0.1 x10^3/uL (0.0-0.2) Erythrocyte Sedimentation Rate 5 (0-25) Sodium Level 140 mmol/L (136-145) Potassium Level 3.4 mmol/L (3.5-5.1) L Chloride Level 101 mmol/L (98-107) Carbon Dioxide Level 28 mmol/L (21-32) Anion Gap 11 (6-14) Blood Urea Nitrogen 10 mg/dL (7-20) Creatinine 0.9 mg/dL (0.6-1.0) Estimated GFR (Cockcroft-Gault) 64.8 Glucose Level 164 mg/dL (70-99) H Calcium Level 9.0 mg/dL (8.5-10.1) C-Reactive Protein, Quantitative 7.4 mg/L (0-3.3) H Laboratory Tests 08/24/18 15:30 Laboratory Tests 08/24/18 15:30 EKG EKG [] Radiology/Procedures Radiology/Procedures []PROCEDURE: CT MAXILLOFACIAL W/CONTRAST CT STUDY OF THE MAXILLOFACIAL BONES WITH CONTRAST Clinical indications: Right lower jaw abscess. TECHNIQUE: After IV infusion of 70 cc of Omnipaque 300, helical CT scanning of the maxillofacial bones was performed. Multiplanar 2-D reconstructions were generated. PQRS compliance Statement One or more of the following individualized dose reduction techniques were utilized for this study: 1. Automated exposure control 2. Adjustment of the mA and/or kV according to patient size 3. Use of iterative reconstruction technique COMPARISON: Study dated April 15, 2018. FINDINGS: The previously seen right submandibular abscess has significantly decreased in size. It now measures 17 mm in size with a central 5 mm fluid collection. Again seen is adjacent radiolucency of the mandible. This radiolucency has decreased in size. The patient is edentulous. Therefore the remaining tubes seen previously has been extracted or fallen out. No new lytic process is seen. No other soft tissue abscess is evident. The submandibular and parotid salivary glands are unremarkable. No enlarging cervical lymphadenopathy is seen. There is a 13 mm hypodense nodule of the right lobe of the thyroid gland. Thyroid gland was not seen on the previous study. No opacification of the paranasal sinuses or air-fluid levels are seen. IMPRESSION: Significant decrease in size of right submandibular abscess filling previously. Decrease in size in radiolucency of the adjacent right side of the mandible. Previously seen residual right mandibular tooth has been extracted or fallen out. The patient is now completely edentulous. Hypodense nodule of the right lobe of the thyroid gland. This may be further evaluated with thyroid sonography. Electronically signed by: Alexander Gray MD (08/24/2018 4:38 PM) [facility] DICTATED and SIGNED BY: ALEXANDER GRAY MD DATE: 08/24/18 6943 Course & Med Decision Making Course & Med Decision Making Pertinent Labs and Imaging studies reviewed. (See chart for details) This is a 57-year-old female patient presenting to the ED today with mandible swelling and concerned she could have a dental abscess. Tetanus up-to-date. CT o f maxillary facial was noted for an improvement of the right mandible abscess. Patient was put on clindamycin and instructed to continue following up with the dentist. Dragon Disclaimer Dragon Disclaimer This electronic medical record was generated, in whole or in part, using a voice recognition dictation system. Departure Departure Impression: Primary Impression: Chronic abscess of mandible Disposition: HOME, SELF-CARE Condition: STABLE Referrals: NO PCP (PCP) Follow-up with your dentist in 1-2 weeks Patient Instructions: Dental Abscess Additional Instructions: You were evaluated in the emergency room an noted to have an improvement on your right mandible abscess. We put you know antibiotics, take them until completed, continue following up with your dentist. Scripts Hydrocodone/Apap 5-325 (NORCO 5-325 TABLET) 1 Each Tablet 1 TAB PO Q4-6HRS, #8 TAB Prov: MUTUNGAJANES CHARCOAL KILN BURNER 08/24/18 Clindamycin Hcl (CLINDAMYCIN HCL) 150 Mg Capsule 3 CAP PO TID, #90 CAP Prov: MUTUNGA,JANES CHARCOAL KILN BURNER 08/24/18 MUTUNGAJANES CHARCOAL KILN BURNER August 24, 2018 15:48
[2018-08-24 15:52] LABS: BASO # 0.1 x10^3/uL (0.0-0.2); BASO % 1 % (0-3); EOS # 0.1 x10^3/uL (0.0-0.7); EOS % 1 % (0-3); HEMATOCRIT 46.2 % (36.0-47.0); HEMOGLOBIN 15.4 g/dL (12.0-15.5); LYMPH % 46 % (24-48); MEAN CORPUSCULAR HEMOGLOBIN 28 pg (25-35); MEAN CORPUSCULAR HGB CONC 33 g/dL (31-37); MEAN CORPUSCULAR VOLUME 83 fL (79-100); MONO # 0.5 x10^3/uL (0.0-1.1); MONO % 7 % (0-9); NEUT % 45 % (31-73); PLATELET COUNT 341 x10^3/uL (140-400); RED BLOOD COUNT 5.59 x10^6/uL (3.50-5.40); RED CELL DISTRIBUTION WIDTH 15.4 % (11.5-14.5); WHITE BLOOD COUNT 6.6 x10^3/uL (4.0-11.0)
[2018-08-24 15:58] LABS: CREATININE 0.9 mg/dL (0.6-1.0); GFR 64.8; POTASSIUM 3.4 mmol/L (3.5-5.1)
[2018-08-24 16:00] LABS: C-REACTIVE PROTEIN 7.4 mg/L (0-3.3)
[2018-08-24] MEDS ORDERED: CONTRAST GIVEN. MC PRN (16:15)
[2018-08-24] MEDS ORDERED: IOHEXOL 300 MG/ML 100ML VIAL. IV ONE (16:15)
[2018-08-24 16:30] VITALS: BP 120/75
--- NOTE | 2018-08-24 16:41 | RAD ---
CT STUDY OF THE MAXILLOFACIAL BONES WITH CONTRAST Clinical indications: Right lower jaw abscess. TECHNIQUE: After IV infusion of 70 cc of Omnipaque 300, helical CT scanning of the maxillofacial bones was performed. Multiplanar 2-D reconstructions were generated. PQRS compliance Statement One or more of the following individualized dose reduction techniques were utilized for this study: 1. Automated exposure control 2. Adjustment of the mA and/or kV according to patient size 3. Use of iterative reconstruction technique COMPARISON: Study dated April 15, 2018. FINDINGS: The previously seen right submandibular abscess has significantly decreased in size. It now measures 17 mm in size with a central 5 mm fluid collection. Again seen is adjacent radiolucency of the mandible. This radiolucency has decreased in size. The patient is edentulous. Therefore the remaining tubes seen previously has been extracted or fallen out. No new lytic process is seen. No other soft tissue abscess is evident. The submandibular and parotid salivary glands are unremarkable. No enlarging cervical lymphadenopathy is seen. There is a 13 mm hypodense nodule of the right lobe of the thyroid gland. Thyroid gland was not seen on the previous study. No opacification of the paranasal sinuses or air-fluid levels are seen. IMPRESSION: Significant decrease in size of right submandibular abscess filling previously. Decrease in size in radiolucency of the adjacent right side of the mandible. Previously seen residual right mandibular tooth has been extracted or fallen out. The patient is now completely edentulous. Hypodense nodule of the right lobe of the thyroid gland. This may be further evaluated with thyroid sonography. Electronically signed by: Diallo Gray MD (08/24/2018 4:38 PM) [place] [id number]
[2018-08-24] MEDS ORDERED: CLIN150C14 PO (17:18)
[2018-08-24] MEDS ORDERED: HYDR-3164 PO (17:18)
== END 2018-08-24 17:47 | disposition home or self-care (01) ==
LOC: ER 14:12
DX: M27.2 Inflammatory conditions of jaws (principal); K04.7 Periapical abscess without sinus; J44.9 Chronic obstructive pulmonary disease, unspecified
CPT/HCPCS: 36415; 70487; 80048; 85025; 85651; 86140; 96374; 96375; 99285; J2270; J2405; Q9967